=== PATIENT | female | born 1965 | race Caucasian/White ===

== ENCOUNTER 2018-10-21 08:26 | Day surgery (SDC) | payer BC, OTHER ==
[~2018-10-21 08:26] MED LIST: Midazolam 1 MG/ML 2 ML SDV ONE; Propofol 200 MG/20 ML SDV ONE; fentaNYL 100 MCG/2 ML SDV ONE
[2018-10-21] MEDS ORDERED: Lactated Ringers 1,000 ML IV SCH (09:00)
--- NOTE | 2018-10-22 08:03 | OR ---
DATE OF PROCEDURE: 10/21/2018 PREOPERATIVE DIAGNOSIS: Colon cancer screening. POSTOPERATIVE DIAGNOSES: Diverticulosis, polyp 50 cm from the anal verge. PROCEDURE: Colonoscopy to the cecum with biopsy and then snare cautery polypectomy of polyp at 50 cm from the anal verge. SURGEON: Matty Capone MD ANESTHESIA: IV anesthesia with monitored anesthesia care. INDICATION: This 53-year-old white female is referred for a colonoscopy for colon cancer screening. She has never had a colonoscopic exam. I counseled her for the procedure, including risks and alternatives, and she gave her informed consent to proceed. DESCRIPTION OF PROCEDURE: The patient was placed in the left lateral decubitus position. IV anesthesia was administered by the Anesthesia Service. Time-out was held. A rectal exam was performed, which was unremarkable. The flexible video Olympus colonoscope was introduced through her anus, up her rectum and out her colon, all the way to the cecum. En route, at about 50 cm from the anal verge, we saw a polyp. We initially biopsied it. It was too large to remove using this technique. A snare was passed about its base. It was elevated up away from the bowel wall and amputated as electrocautery was applied. The polyp was aspirated through the scope and captured in a polyp trap. Additionally, en route to the cecum, we saw a few scattered left-sided diverticula. There was no bleeding or inflammation associated with them. Once the cecum was reached, the scope was slowly withdrawn examining the mucosa throughout. No additional mucosal abnormalities were noted. The scope was retroflexed in the rectum with the distal rectum appearing unremarkable. The scope was straightened and removed. She tolerated the procedure well. Matty Capone MD /[id number]
== END 2018-10-21 11:12 | disposition home or self-care (01) ==
LOC: JP.SDS 08:26
PROVIDERS: ATTEND Surgery
DX: Z12.11 Encounter for screening for malignant neoplasm of colon (principal); D12.5 Benign neoplasm of sigmoid colon; K57.30 Diverticulosis of large intestine without perforation or abscess without bleeding
CPT/HCPCS: 45385; 81025; 88305; J2250; J2704; J3010; J7120